=== PATIENT | female | born 1970 | race Caucasian/White ===

== ENCOUNTER 2023-10-04 14:59 | Outpatient (CLI) | payer OTHER | END 2023-10-04 15:00 | disposition home or self-care (01) | LOC: ULT 14:59 | PROVIDERS: ATTEND Nurse Practitioner Family | DX: N93.9 Abnormal uterine and vaginal bleeding, unspecified (principal); D25.9 Leiomyoma of uterus, unspecified; R93.89 Abnormal findings on diagnostic imaging of other specified body structures; N83.8 Other noninflammatory disorders of ovary, fallopian tube and broad ligament | CPT/HCPCS: 76856 ==

== ENCOUNTER 2023-12-07 09:46 | Day surgery (SDC) | payer SELFPAY ==
[2023-12-06 14:20] VITALS: BMI 35.4
[2023-12-07] MEDS ORDERED: Ketorolac Tromethamine 30 MG (1 mL) VIAL ONE (10:46)
[2023-12-07] MEDS ORDERED: Acetaminophen 500 MG TAB ONE (10:46)
[2023-12-07] MEDS ORDERED: Propofol 1,000 MG/100 ML VIAL IV ONE (11:16)
[2023-12-07] MEDS ORDERED: EPINEPHrine 1 MG/ML VIAL ONE (12:09)
[2023-12-07] MEDS ORDERED: Lidocaine 2% PF 100 mg/5 ml Syringe ONE (12:09)
[2023-12-07] MEDS ORDERED: Bupivacaine 0.25% HCL 30 ML VIAL ONE (12:10)
[2023-12-07] MEDS ORDERED: Lidocaine 2% PF 5 ML VIAL ONE (12:12)
[2023-12-07] MEDS ORDERED: Lidocaine 1% (PF) 30 ML VIAL ONE (12:16)
[2023-12-07] MEDS ORDERED: Midazolam HCl 2 mg/2 ml Vial ONE (12:22)
[2023-12-07] MEDS ORDERED: CEFAZOLIN 2 GM VIAL ONE (12:22)
[2023-12-07] MEDS ORDERED: Sodium Chloride 0.9% 100 ML ONE (12:22)
[2023-12-07] MEDS ORDERED: fentaNYL PF 100 MCG/2 ML SYRINGE ONE (12:34)
[2023-12-07] MEDS ORDERED: PHENYLEPHRINE-NS 100 MCG/ML 10 ML SYRINGE ONE (12:54)
== END 2023-12-07 14:34 | disposition home or self-care (01) ==
LOC: SDC 09:46
PROVIDERS: ATTEND Specialist
PROC: 0JH60WZ Insertion of Totally Implantable Vascular Access Device into Chest Subcutaneous Tissue and Fascia, Open Approach (ICD-10-PCS; principal; 2023-12-07)
DX: C21.0 Malignant neoplasm of anus, unspecified (principal); K64.9 Unspecified hemorrhoids; Z88.1 Allergy status to other antibiotic agents; Z88.2 Allergy status to sulfonamides; Z91.02 Food additives allergy status; Z90.89 Acquired absence of other organs; Z87.891 Personal history of nicotine dependence
CPT/HCPCS: 71045; C1788; J0171; J0665; J1642; J1885; J2001; J2250; J2704; J3490

== ENCOUNTER → 2023-12-13 | Outpatient (CLI) | payer OTHER | LOC: PET 11:00 | PROVIDERS: ATTEND Internal Medicine Hematology & Oncology | DX: C21.8 Malignant neoplasm of overlapping sites of rectum, anus and anal canal (principal); K62.9 Disease of anus and rectum, unspecified | CPT/HCPCS: 78815; A9552 ==

== ENCOUNTER 2024-04-30 09:30 | Outpatient (CLI) | payer BC | END 2024-04-30 09:31 | disposition home or self-care (01) | LOC: PET 09:30 | PROVIDERS: ATTEND Radiology Radiation Oncology | DX: C21.1 Malignant neoplasm of anal canal (principal) | CPT/HCPCS: 78815; A9552 ==

== ENCOUNTER 2025-03-06 14:41 | Outpatient (CLI) | payer BC | END 2025-03-06 14:42 | disposition home or self-care (01) | LOC: BICRAD 14:41 | PROVIDERS: ATTEND Nurse Practitioner Family | DX: M79.675 Pain in left toe(s) (principal); S92.535A Nondisplaced fracture of distal phalanx of left lesser toe(s), initial encounter for closed fracture ==